=== PATIENT | female | born 1930 | race Two or more races ===

== ENCOUNTER 2017-05-28 13:13 | Inpatient (IN) | payer MEDICARE, MEDICAID ==
[~2017-05-28] VITALS: Ht 165.1 cm; Wt 70.8 kg
[2017-05-28] MEDS ORDERED: LIORESAL20 MG ORAL (13:54)
[2017-05-28 14:00] VITALS: BP 142/65
[2017-05-28 14:12] LABS: HEMATOCRIT 33.4 % (37.0-47.0); HEMOGLOBIN 12.1 G/DL (12.0-16.0); MEAN CORPUSCULAR VOLUME 93 FL (80-99); PLATELET COUNT 154 K/UL (150-450); RED CELL DISTRIBUTION WIDTH 10.7 % (11.6-14.8); WHITE BLOOD COUNT 10.8 K/UL (4.8-10.8)
[2017-05-28 14:30] LABS: ANION GAP 7 mmol/L (5-15); BLOOD UREA NITROGEN 26 mg/dL (7-18); CARBON DIOXIDE 30 MMOL/L (21-32); CHLORIDE 101 MMOL/L (98-107); CREATININE 0.9 MG/DL (0.55-1.30); POTASSIUM 3.4 MMOL/L (3.5-5.1); SODIUM 138 MMOL/L (136-145)
[2017-05-28 14:45] LABS: ALANINE AMINOTRANSFERASE 28 U/L (12-78); ALBUMIN 3.6 G/DL (3.4-5.0); ALBUMIN/GLOBULIN RATIO 1.1 (1.0-2.7); ALKALINE PHOSPHATASE 54 U/L (46-116); ASPARTATE AMINO TRANSFERASE 20 U/L (15-37); BILIRUBIN,TOTAL 0.5 MG/DL (0.2-1.0); CKMB < 0.5 NG/ML (0.0-3.6); CREATINE KINASE 30 U/L (26-308)
[2017-05-28 15:00] VITALS: BP 143/50
--- NOTE | 2017-05-28 15:49 | Diagnostic Imaging Report ---
Indication: Cough Technique: One view of the chest Comparison: none Findings: At least 2 subcentimeter nodular opacities are seen in the right lung base. Lungs and pleural spaces are otherwise clear. Heart size is normal Impression: Right basilar subcentimeter nodular opacities, likely postinflammatory but neoplasm not completely excludable. Consider further evaluation with CT scan if clinically indicated No acute process otherwise
[2017-05-28 16:00] VITALS: BP 135/63
--- NOTE | 2017-05-28 16:41 | Emergency Room Report ---
History of Present Illness General Chief Complaint: Chest Pain Source: Patient Present Illness HPI Patient presents to the emergency department today complaining of one day of worsening chest discomfort. It is described as dull achy Associates, shortness of breath. Radiates into her left shoulder. She denies any leg pain or leg swelling. Symptoms noted to be moderate to severe. Patient does not recall recent cardiac study.No other modifying factors. No other associated signs and symptoms. No other complaints were noted. Allergies: Coded Allergies: IBUPROFEN (Verified Allergy, Unknown, 05/28/17) Patient History Past Medical History: HTN Past Surgical History: none Pertinent Family History: none Social History: Denies: smoking, alcohol use, drug use Last Menstrual Period: na Reviewed Nursing Documentation: PMH: Agreed; PSxH: Agreed Nursing Documentation-PMH Past Medical History: No History, Except For Hx Hypertension: Yes Review of Systems All Other Systems: negative except mentioned in HPI Physical Exam Vital Signs Date Time Temp Pulse Resp B/P (MAP) Pulse Ox O2 Delivery O2 Flow Rate FiO2 05/28/17 13:22 98.5 75 18 111/56 98 Room Air 98.4 Sp02 EP Interpretation: reviewed, normal General Appearance: normal inspection, well appearing, no apparent distress, alert Head: atraumatic Eyes: bilateral eye normal inspection ENT: normal ENT inspection, hearing grossly normal, normal voice Neck: normal inspection, full range of motion, supple, no bony tend Respiratory: normal inspection, lungs clear, normal breath sounds, no respiratory distress, no retraction, no wheezing Cardiovascular #1: regular rate, rhythm, no edema Gastrointestinal: normal inspection, normal bowel sounds, non tender, soft, no guarding, no hernia Genitourinary: no CVA tenderness Musculoskeletal: normal inspection, back normal, normal range of motion Neurologic: normal inspection, alert, responsive, speech normal Psychiatric: normal inspection, judgement/insight normal, mood/affect normal Skin: normal inspection, normal color, no rash Medical Decision Making Diagnostic Impression: Primary Impression: Chest pain Additional Impression: ACS (acute coronary syndrome) ER Course Patient presented to the emergency department today complaining of chest pain. Differential diagnoses include acute coronary syndrome, pulmonary embolism, pneumothorax, chest wall pain, pleurisy, pericarditis, acute anxiety reaction just to name a few. Given the severity of the patient's presentation I felt this is a highly complex patient. This patient required extensive workup. CBC , chemistry, EKG, chest x-ray, cardiac enzymes, liver profile were all obtained. 12-lead EKG performed for nontraumatic chest pain. RS documentation: EKG was performed. Please refer to below for interpretation. Patient's laboratory workup was negative. Given patient's symptoms and her risk factors felt the patient required admission. Case discussed with Dr. Jens Sanchez for admission. Patient will be admitted to telemetry for further treatment. Labs Test 05/28/17 13:46 White Blood Count 10.8 K/UL (4.8-10.8) Red Blood Count 3.60 M/UL (4.20-5.40) Hemoglobin 12.1 G/DL (12.0-16.0) Hematocrit 33.4 % (37.0-47.0) Mean Corpuscular Volume 93 FL (80-99) Mean Corpuscular Hemoglobin 33.5 PG (27.0-31.0) Mean Corpuscular Hemoglobin Concent 36.1 G/DL (32.0-36.0) Red Cell Distribution Width 10.7 % (11.6-14.8) Platelet Count 154 K/UL (150-450) Mean Platelet Volume 8.4 FL (6.5-10.1) Neutrophils (%) (Auto) % (45.0-75.0) Lymphocytes (%) (Auto) % (20.0-45.0) Monocytes (%) (Auto) % (1.0-10.0) Eosinophils (%) (Auto) % (0.0-3.0) Basophils (%) (Auto) % (0.0-2.0) Differential Total Cells Counted 100 Neutrophils % (Manual) 25 % (45-75) Lymphocytes % (Manual) 70 % (20-45) Monocytes % (Manual) 4 % (1-10) Eosinophils % (Manual) 1 % (0-3) Basophils % (Manual) 0 % (0-2) Band Neutrophils 0 % (0-8) Reactive Lymphocytes 1+ Platelet Estimate Adequate Platelet Morphology Normal Red Blood Cell Morphology Normal Sodium Level 138 MMOL/L (136-145) Potassium Level 3.4 MMOL/L (3.5-5.1) Chloride Level 101 MMOL/L (98-107) Carbon Dioxide Level 30 MMOL/L (21-32) Anion Gap 7 mmol/L (5-15) Blood Urea Nitrogen 26 mg/dL (7-18) Creatinine 0.9 MG/DL (0.55-1.30) Estimat Glomerular Filtration Rate mL/min (>60) Glucose Level 109 MG/DL (74-106) Calcium Level 9.0 MG/DL (8.5-10.1) Total Bilirubin 0.5 MG/DL (0.2-1.0) Aspartate Amino Transf (AST/SGOT) 20 U/L (15-37) Alanine Aminotransferase (ALT/SGPT) 28 U/L (12-78) Alkaline Phosphatase 54 U/L (46-116) Total Creatine Kinase 30 U/L (26-308) Creatine Kinase MB < 0.5 NG/ML (0.0-3.6) Creatine Kinase MB Relative Index 1.6 Troponin I 0.000 ng/mL (0.000-0.056) Pro-B-Type Natriuretic Peptide 362 pg/mL (0-125) Total Protein 6.9 G/DL (6.4-8.2) Albumin 3.6 G/DL (3.4-5.0) Globulin 3.3 g/dL Albumin/Globulin Ratio 1.1 (1.0-2.7) Lipase 321 U/L (73-393) EKG Diagnostic Results Rate: normal Rhythm: NSR ST Segments: no acute changes Rhythm Strip Diag. Results EP Interpretation: yes Rate: 65 Rhythm: NSR, no PVC's, no ectopy Chest X-Ray Diagnostic Results Chest X-Ray Diagnostic Results : Chest X-Ray Ordered: Yes # of Views/Limited/Complete: 1 View Indication: Chest Pain EP Interpretation: No Interpretation: other - possible pulmonary nodules Last Vital Signs Date Time Temp Pulse Resp B/P (MAP) Pulse Ox O2 Delivery O2 Flow Rate FiO2 05/28/17 16:00 61 18 135/63 100 Room Air 05/28/17 13:22 98.5 98.4 Status: improved Disposition: ADMITTED INPATIENT Condition: Serious Referrals: NON PHYSICIAN (PCP) KALYN FIERRO M.D. May 28, 2017 16:41
[2017-05-28 17:00] VITALS: BP 139/68
[2017-05-28] MEDS ORDERED: dilTIAZem HCl 25mg/5ml Inj IV PRN (17:15)
[2017-05-28] MEDS ORDERED: Nitroglycerin Subl 0.4mg tab SL PRN (17:15)
[2017-05-28] MEDS ORDERED: Miralax 17gm pkt ORAL PRN (17:15)
[2017-05-28] MEDS ORDERED: Albuterol/Ipratropium 3ml neb HHN PRN (17:15)
[2017-05-28] MEDS ORDERED: Enalaprilat 2.5mg/2ml Inj IV PRN (17:15)
[2017-05-28 20:00] VITALS: BP 139/67
[2017-05-28] MEDS: Morphine Sulfate 2mg/ml Inj IVP PRN (20:07)
--- NOTE | 2017-05-28 20:35 | Cardiology Progress Note ---
Assessment/Plan Assessment/Plan ekg unremarkable tropnoted cxr neg awiatr echo and trop tomorrow full note to follow Objective Last 24 Hour Vital Signs Date Time Temp Pulse Resp B/P (MAP) Pulse Ox O2 Delivery O2 Flow Rate FiO2 05/28/17 19:59 65 18 Room Air 05/28/17 17:50 98.5 62 12 139/68 100 Nasal Cannula 2.0 98.4 05/28/17 17:00 62 12 139/68 100 Nasal Cannula 2.0 05/28/17 16:00 61 18 135/63 100 Room Air 05/28/17 15:00 67 16 143/50 98 Room Air 05/28/17 14:00 62 16 142/65 98 Room Air 05/28/17 13:30 Room Air 05/28/17 13:22 98.5 75 18 111/56 98 Room Air 98.4 Laboratory Tests Test 05/28/17 13:46 05/28/17 20:00 White Blood Count 10.8 K/UL (4.8-10.8) Red Blood Count 3.60 M/UL (4.20-5.40) L Hemoglobin 12.1 G/DL (12.0-16.0) Hematocrit 33.4 % (37.0-47.0) L Mean Corpuscular Volume 93 FL (80-99) Mean Corpuscular Hemoglobin 33.5 PG (27.0-31.0) H Mean Corpuscular Hemoglobin Concent 36.1 G/DL (32.0-36.0) H Red Cell Distribution Width 10.7 % (11.6-14.8) L Platelet Count 154 K/UL (150-450) Mean Platelet Volume 8.4 FL (6.5-10.1) Neutrophils (%) (Auto) % (45.0-75.0) Lymphocytes (%) (Auto) % (20.0-45.0) Monocytes (%) (Auto) % (1.0-10.0) Eosinophils (%) (Auto) % (0.0-3.0) Basophils (%) (Auto) % (0.0-2.0) Differential Total Cells Counted 100 Neutrophils % (Manual) 25 % (45-75) L Lymphocytes % (Manual) 70 % (20-45) H Monocytes % (Manual) 4 % (1-10) Eosinophils % (Manual) 1 % (0-3) Basophils % (Manual) 0 % (0-2) Band Neutrophils 0 % (0-8) Reactive Lymphocytes 1+ Platelet Estimate Adequate Platelet Morphology Normal Red Blood Cell Morphology Normal Sodium Level 138 MMOL/L (136-145) Potassium Level 3.4 MMOL/L (3.5-5.1) L Chloride Level 101 MMOL/L (98-107) Carbon Dioxide Level 30 MMOL/L (21-32) Anion Gap 7 mmol/L (5-15) Blood Urea Nitrogen 26 mg/dL (7-18) H Creatinine 0.9 MG/DL (0.55-1.30) Estimat Glomerular Filtration Rate mL/min (>60) Glucose Level 109 MG/DL (74-106) H Calcium Level 9.0 MG/DL (8.5-10.1) Total Bilirubin 0.5 MG/DL (0.2-1.0) Aspartate Amino Transf (AST/SGOT) 20 U/L (15-37) Alanine Aminotransferase (ALT/SGPT) 28 U/L (12-78) Alkaline Phosphatase 54 U/L (46-116) Total Creatine Kinase 30 U/L (26-308) Creatine Kinase MB < 0.5 NG/ML (0.0-3.6) Creatine Kinase MB Relative Index 1.6 Troponin I 0.000 ng/mL (0.000-0.056) Pending Pro-B-Type Natriuretic Peptide 362 pg/mL (0-125) H Total Protein 6.9 G/DL (6.4-8.2) Albumin 3.6 G/DL (3.4-5.0) Globulin 3.3 g/dL Albumin/Globulin Ratio 1.1 (1.0-2.7) Lipase 321 U/L (73-393) EZEQUIEL MARKS May 28, 2017 20:35
[2017-05-28] MEDS: Heparin 5000 units/ml inj SUBQ SCH (20:42)
[2017-05-29] VITALS: BP 129/65
[2017-05-29 04:00] VITALS: BP 130/67
[2017-05-29] MEDS: Morphine Sulfate 2mg/ml Inj IVP PRN (06:56)
[2017-05-29] MEDS ORDERED: Morphine Sulfate 4mg/ml Inj IVP PRN (07:00)
[2017-05-29 08:00] VITALS: BP 124/64
[2017-05-29] MEDS: Heparin 5000 units/ml inj SUBQ SCH ×2 (08:45→21:16)
[2017-05-29 08:52] LABS: HEMATOCRIT 36.7 % (37.0-47.0); HEMOGLOBIN 12.4 G/DL (12.0-16.0); MEAN CORPUSCULAR VOLUME 94 FL (80-99); PLATELET COUNT 158 K/UL (150-450); RED BLOOD COUNT 3.91 M/UL (4.20-5.40); RED CELL DISTRIBUTION WIDTH 11.1 % (11.6-14.8); WHITE BLOOD COUNT 11.2 K/UL (4.8-10.8)
[2017-05-29 09:24] LABS: CHOLESTEROL 225 MG/DL (< 200); HDL CHOLESTEROL 55 MG/DL (40-60); TRIGLYCERIDES 94 MG/DL (30-150)
[2017-05-29 12:00] VITALS: BP 131/68
--- NOTE | 2017-05-29 12:01 | Consultation ---
History of Present Illness General Date patient seen: May 29, 2017 Chief Complaint: Chest Pain Referring physician: Dr. Parada Reason for Consultation: pulmonary nodule Present Illness HPI 86 year of female with hx of HTN presented to the emergency department complaining of chest discomfort. It is described as dull achy, shortness of breath. Radiates into her left shoulder. She denies any leg pain or leg swelling. Symptoms noted to be moderate to severe. she is admitted to telemetry to rule out ACS. Her cxr showed subcentimeter nodules in sub hilar area. Allergies: Coded Allergies: IBUPROFEN (Verified Allergy, Unknown, 05/28/17) Medication History Scheduled Baclofen (Baclofen), 20 MG ORAL THREE TIMES A DAY, (Reported) Patient History Healthcare decision maker N Resuscitation status Advanced Directive on File Past Medical/Surgical History Past Medical/Surgical History: (1) History of hypertension Review of Systems Eye: Reports: no symptoms ENT: Reports: no symptoms Cardiovascular: Reports: chest pain All Other Systems: negative except mentioned in HPI Physical Exam General Appearance: WD/WN Lines, tubes and drains: peripheral HEENT: normocephalic, atraumatic Neck: non-tender, normal alignment Respiratory/Chest: chest wall non-tender, lungs clear Breasts: no masses Cardiovascular/Chest: normal peripheral pulses Abdomen: normal bowel sounds, soft Genitourinary/Rectal: normal genital exam Extremities: normal range of motion Skin Exam: normal pigmentation Last 24 Hour Vital Signs Date Time Temp Pulse Resp B/P (MAP) Pulse Ox O2 Delivery O2 Flow Rate FiO2 05/29/17 08:00 68 05/29/17 08:00 97.0 66 19 124/64 100 Nasal Cannula 2.0 97.0 66 05/29/17 04:00 96.1 66 16 130/67 99 Nasal Cannula 2.0 96.1 05/29/17 04:00 61 05/29/17 00:00 57 05/29/17 00:00 96.4 71 19 129/65 100 Nasal Cannula 2.0 96.4 05/28/17 20:00 97.3 79 18 139/67 98 Nasal Cannula 2.0 97.3 05/28/17 20:00 70 05/28/17 19:59 65 18 Room Air 05/28/17 17:50 98.5 62 12 139/68 100 Nasal Cannula 2.0 98.4 05/28/17 17:00 62 12 139/68 100 Nasal Cannula 2.0 05/28/17 16:00 61 18 135/63 100 Room Air 05/28/17 15:00 67 16 143/50 98 Room Air 05/28/17 14:00 62 16 142/65 98 Room Air 05/28/17 13:30 Room Air 05/28/17 13:22 98.5 75 18 111/56 98 Room Air 98.4 Intake and Output 05/28/17 05/29/17 19:00 07:00 Intake Total 420 ml Output Total 100 ml 300 ml Balance -100 ml 120 ml Intake Oral 420 ml Output Urine Total 100 ml 300 ml # Voids 1 Laboratory Tests Test 05/28/17 13:46 05/28/17 20:00 05/29/17 08:15 White Blood Count 10.8 K/UL (4.8-10.8) 11.2 K/UL (4.8-10.8) H Red Blood Count 3.60 M/UL (4.20-5.40) L 3.91 M/UL (4.20-5.40) L Hemoglobin 12.1 G/DL (12.0-16.0) 12.4 G/DL (12.0-16.0) Hematocrit 33.4 % (37.0-47.0) L 36.7 % (37.0-47.0) L Mean Corpuscular Volume 93 FL (80-99) 94 FL (80-99) Mean Corpuscular Hemoglobin 33.5 PG (27.0-31.0) H 31.9 PG (27.0-31.0) H Mean Corpuscular Hemoglobin Concent 36.1 G/DL (32.0-36.0) H 33.9 G/DL (32.0-36.0) Red Cell Distribution Width 10.7 % (11.6-14.8) L 11.1 % (11.6-14.8) L Platelet Count 154 K/UL (150-450) 158 K/UL (150-450) Mean Platelet Volume 8.4 FL (6.5-10.1) 8.0 FL (6.5-10.1) Neutrophils (%) (Auto) % (45.0-75.0) % (45.0-75.0) Lymphocytes (%) (Auto) % (20.0-45.0) % (20.0-45.0) Monocytes (%) (Auto) % (1.0-10.0) % (1.0-10.0) Eosinophils (%) (Auto) % (0.0-3.0) % (0.0-3.0) Basophils (%) (Auto) % (0.0-2.0) % (0.0-2.0) Differential Total Cells Counted 100 100 Neutrophils % (Manual) 25 % (45-75) L 23 % (45-75) L Lymphocytes % (Manual) 70 % (20-45) H 71 % (20-45) H Monocytes % (Manual) 4 % (1-10) 5 % (1-10) Eosinophils % (Manual) 1 % (0-3) 1 % (0-3) Basophils % (Manual) 0 % (0-2) 0 % (0-2) Band Neutrophils 0 % (0-8) 0 % (0-8) Reactive Lymphocytes 1+ 1+ Platelet Estimate Adequate Adequate Platelet Morphology Normal Normal Red Blood Cell Morphology Normal Normal Sodium Level 138 MMOL/L (136-145) Potassium Level 3.4 MMOL/L (3.5-5.1) L Chloride Level 101 MMOL/L (98-107) Carbon Dioxide Level 30 MMOL/L (21-32) Anion Gap 7 mmol/L (5-15) Blood Urea Nitrogen 26 mg/dL (7-18) H Creatinine 0.9 MG/DL (0.55-1.30) Estimat Glomerular Filtration Rate mL/min (>60) Glucose Level 109 MG/DL (74-106) H Calcium Level 9.0 MG/DL (8.5-10.1) Total Bilirubin 0.5 MG/DL (0.2-1.0) Aspartate Amino Transf (AST/SGOT) 20 U/L (15-37) Alanine Aminotransferase (ALT/SGPT) 28 U/L (12-78) Alkaline Phosphatase 54 U/L (46-116) Total Creatine Kinase 30 U/L (26-308) Creatine Kinase MB < 0.5 NG/ML (0.0-3.6) Creatine Kinase MB Relative Index 1.6 Troponin I 0.000 ng/mL (0.000-0.056) 0.000 ng/mL (0.000-0.056) 0.000 ng/mL (0.000-0.056) Pro-B-Type Natriuretic Peptide 362 pg/mL (0-125) H Total Protein 6.9 G/DL (6.4-8.2) Albumin 3.6 G/DL (3.4-5.0) Globulin 3.3 g/dL Albumin/Globulin Ratio 1.1 (1.0-2.7) Lipase 321 U/L (73-393) Prothrombin Time 10.4 SEC (9.30-11.50) Prothromb Time International Ratio 1.0 (0.9-1.1) Activated Partial Thromboplast Time 23 SEC (23-33) C-Reactive Protein, Quantitative < 0.4 mg/dL (0.00-0.90) Triglycerides Level 94 MG/DL (30-150) Cholesterol Level 225 MG/DL (< 200) H LDL Cholesterol 147 mg/dL (<100) H HDL Cholesterol 55 MG/DL (40-60) Cholesterol/HDL Ratio 4.1 (3.3-4.4) Thyroid Stimulating Hormone (TSH) 0.595 uiU/mL (0.358-3.740) Height (Feet): 5 Height (Inches): 5.00 Weight (Pounds): 156 Medications Current Medications Medications (Trade) Dose Ordered Sig/Ayesha Route PRN Reason Start Time Stop Time Status Last Admin Dose Admin Acetaminophen (Tylenol) 650 mg Q4H PRN ORAL FEVER (temp>100.5F) 05/28/17 17:15 06/27/17 17:14 Albuterol/ Ipratropium (Albuterol/ Ipratropium) 3 ml Q4H PRN HHN Shortness of Breath 05/28/17 17:15 06/02/17 17:14 Diltiazem HCl (Cardizem) 10 mg Q1H PRN IV heart rate more than 120, 05/28/17 17:15 06/27/17 17:14 Enalaprilat (Vasotec) 2.5 mg Q6H PRN IV sbp more than 160 05/28/17 17:15 06/27/17 17:14 Heparin Sodium (Porcine) (Heparin 5000 units/ml) 5,000 units EVERY 12 HOURS SUBQ 05/28/17 21:00 06/27/17 20:59 05/29/17 08:45 Morphine Sulfate (Morphine Sulfate) 2 mg Q4H PRN IVP Severe Pain (Pain Scale 7-10) 05/29/17 07:00 06/04/17 17:14 Nitroglycerin (Ntg) 0.4 mg Q5M PRN SL Prn Chest Pain 05/28/17 17:15 06/27/17 17:14 Ondansetron HCl (Zofran) 4 mg Q6H PRN IVP Nausea & Vomiting 05/28/17 17:15 06/27/17 17:14 Polyethylene Glycol (Miralax) 17 gm DAILYPRN PRN ORAL Constipation 05/28/17 17:15 06/27/17 17:14 Temazepam (Restoril) 15 mg HSPRN PRN ORAL Insomnia 05/28/17 17:15 06/04/17 17:14 Assessment/Plan Problem List: (1) ACS (acute coronary syndrome) ICD Codes: I24.9 - Acute ischemic heart disease, unspecified SNOMED: 310662989 (2) Pulmonary nodule ICD Codes: R91.1 - Solitary pulmonary nodule SNOMED: 022894099 (3) Chest pain ICD Codes: R07.9 - Chest pain, unspecified SNOMED: 79496467 (4) History of hypertension ICD Codes: Z86.79 - Personal history of other diseases of the circulatory system SNOMED: 032503271 Assessment/Plan serial ekg, tronopnin Echo symptomatic treatment CT of chest with contrast if pt agrees. Eunice Caro MD May 29, 2017 12:01
[2017-05-29] MEDS ORDERED: LORazepam 1mg tab ORAL PRN (13:00)
[2017-05-29] MEDS ORDERED: Meclizine 25mg tab ORAL PRN (14:30)
[2017-05-29 16:00] VITALS: BP_SYST 149; BP_SYST 153; BP_DIAS 65; BP_DIAS 73
--- NOTE | 2017-05-29 16:56 | History & Physical ---
History and Physical History & Physicial Dictated for Int Med -Dr Sanchez no. [id number]. KAILYN CHANDLER May 29, 2017 16:56
[2017-05-29] MEDS: Timolol 0.5% Op Soln 2.5ml BOTH EYES SCH (19:54)
[2017-05-29 20:00] VITALS: BP 174/72
--- NOTE | 2017-05-29 20:00 | Cardiology Progress Note ---
Assessment/Plan Assessment/Plan cp reproducible on palpation of he deltopectoral groove cll multiple pulm nodule on ct a t [place] unchanged since 2012 ct per [facility]ed[facility] report obesity djd htn all torp neg ekg neg unchanged form prior pain on palpation echo no swma ok to dc home with out pt fu [id number] Objective Last 24 Hour Vital Signs Date Time Temp Pulse Resp B/P (MAP) Pulse Ox O2 Delivery O2 Flow Rate FiO2 05/29/17 16:00 97.3 76 19 149/73 97 Nasal Cannula 2.0 97.3 76 05/29/17 15:47 76 05/29/17 14:25 64 20 Nasal Cannula 2.0 05/29/17 14:23 Nasal Cannula 2.0 05/29/17 14:22 97 Nasal Cannula 2.0 05/29/17 12:00 97.7 73 20 131/68 100 Nasal Cannula 2.0 97.7 73 05/29/17 12:00 60 05/29/17 08:00 68 05/29/17 08:00 97.0 66 19 124/64 100 Nasal Cannula 2.0 97.0 66 05/29/17 04:00 96.1 66 16 130/67 99 Nasal Cannula 2.0 96.1 05/29/17 04:00 61 05/29/17 00:00 57 05/29/17 00:00 96.4 71 19 129/65 100 Nasal Cannula 2.0 96.4 05/28/17 20:00 97.3 79 18 139/67 98 Nasal Cannula 2.0 97.3 05/28/17 20:00 70 05/28/17 19:59 65 18 Room Air Intake and Output 05/28/17 05/29/17 19:00 07:00 Intake Total 420 ml Output Total 100 ml 300 ml Balance -100 ml 120 ml Intake Oral 420 ml Output Urine Total 100 ml 300 ml # Voids 1 Laboratory Tests Test 05/28/17 20:00 05/29/17 08:15 Troponin I 0.000 ng/mL (0.000-0.056) 0.000 ng/mL (0.000-0.056) White Blood Count 11.2 K/UL (4.8-10.8) H Red Blood Count 3.91 M/UL (4.20-5.40) L Hemoglobin 12.4 G/DL (12.0-16.0) Hematocrit 36.7 % (37.0-47.0) L Mean Corpuscular Volume 94 FL (80-99) Mean Corpuscular Hemoglobin 31.9 PG (27.0-31.0) H Mean Corpuscular Hemoglobin Concent 33.9 G/DL (32.0-36.0) Red Cell Distribution Width 11.1 % (11.6-14.8) L Platelet Count 158 K/UL (150-450) Mean Platelet Volume 8.0 FL (6.5-10.1) Neutrophils (%) (Auto) % (45.0-75.0) Lymphocytes (%) (Auto) % (20.0-45.0) Monocytes (%) (Auto) % (1.0-10.0) Eosinophils (%) (Auto) % (0.0-3.0) Basophils (%) (Auto) % (0.0-2.0) Differential Total Cells Counted 100 Neutrophils % (Manual) 23 % (45-75) L Lymphocytes % (Manual) 71 % (20-45) H Monocytes % (Manual) 5 % (1-10) Eosinophils % (Manual) 1 % (0-3) Basophils % (Manual) 0 % (0-2) Band Neutrophils 0 % (0-8) Reactive Lymphocytes 1+ Platelet Estimate Adequate Platelet Morphology Normal Red Blood Cell Morphology Normal Prothrombin Time 10.4 SEC (9.30-11.50) Prothromb Time International Ratio 1.0 (0.9-1.1) Activated Partial Thromboplast Time 23 SEC (23-33) C-Reactive Protein, Quantitative < 0.4 mg/dL (0.00-0.90) Triglycerides Level 94 MG/DL (30-150) Cholesterol Level 225 MG/DL (< 200) H LDL Cholesterol 147 mg/dL (<100) H HDL Cholesterol 55 MG/DL (40-60) Cholesterol/HDL Ratio 4.1 (3.3-4.4) Thyroid Stimulating Hormone (TSH) 0.595 uiU/mL (0.358-3.740) EZEQUIEL MARKS May 29, 2017 20:00
--- NOTE | 2017-05-29 21:13 | Cardiology Report ---
APPROVED REPORT EKG Measurement Heart [id number] Normal sinus rhythm with sinus arrhythmia Normal ECG
[2017-05-29] MEDS: Brimonidine 0.2% Opth Sol BOTH EYES SCH (21:14)
--- NOTE | 2017-05-29 21:30 | Consultation ---
DATE OF CONSULTATION: 05/29/2017 CONSULTING PHYSICIAN: Nicole Abreu M.D. HISTORY: The patient is an 86-year-old female with a history of multiple medical problems including hypertension, chest pain, pulmonary nodules, acute coronary syndrome, and anxiety, who has been admitted to the hospital for chest pain. Psychiatry was consulted as the patient presenting with anxiety. During the evaluation, her daughter and son-in-law also were present. The patient having anxiety every day, most of the day. She denied any depressive symptoms, which include suicidal or homicidal ideation. No manic or psychotic symptoms. She has cognitive impairment including memory. PAST PSYCHIATRIC HISTORY: As above. ALLERGIES: Ibuprofen. SUBSTANCE ABUSE HISTORY: No history of illicit drug use or alcohol. MENTAL STATUS EXAMINATION: The patient is alert and oriented times self, place, and situation. Mood is anxious. Affect is constricted. Congruent with mood. Thought process is concrete. Thought content, no suicidal or homicidal ideations. No delusions. Cognition is impaired, mild to moderate. Insight and judgment is fair. ASSESSMENT: AXIS I Anxiety disorder. AXIS II Deferred. AXIS III As above. AXIS IV Low. PLAN: 1. We will start the patient on Ativan p.r.n. 2. The son-in-law stated that he would like morphine to be stopped. I redirected her to speak to the charge nurse. Nicole Abreu M.D. DR: NAKIA JOB#: [id number] CC:
--- NOTE | 2017-05-29 22:15 | History and Physical Report ---
DATE OF ADMISSION: 05/28/2017 CHIEF COMPLAINT: The patient is an 86-year-old white female who presents with chief complaint of dizziness and chest pain. HISTORY OF PRESENT ILLNESS: Began one month ago. The patient was admitted to [facility]. The patient states she had "test done there." The patient states history of present illness began 3 days prior to admission. The patient began to experience dizziness. The patient states dizziness gets worse with change of head position. The patient states on 05/28/2017, she began to experience left-sided chest pain. Chest pain radiates to the left axilla. The patient states there are no alleviating factors. The patient presented to [place] emergency room. The patient was admitted for chest pain to rule out acute coronary syndrome. PAST MEDICAL HISTORY: Significant for; 1. Hypertension. 2. History of cerebrovascular accident in 1989. PAST SURGICAL HISTORY: Significant for 1. Bilateral knee replacement. 2. Bilateral carpal tunnel release. 3. Cholecystectomy. CURRENT MEDICATIONS: Baclofen 20 mg p.o. 3 times daily. ALLERGIES: To Celebrex and tramadol. SOCIAL HISTORY: The patient is a and lives alone. The patient denies tobacco or alcohol use. REVIEW OF SYSTEMS: CONSTITUTIONAL: The patient denies weight loss or weight gain. The patient denies fevers or chills. HEENT: The patient denies ear or throat pain. The patient denies headache. CARDIOVASCULAR: The patient complains of chest pain as above. The patient denies palpitations. CHEST: The patient denies wheeze or shortness of breath. ABDOMEN: The patient denies nausea, vomiting, diarrhea, or constipation. GENITOURINARY: The patient denies dysuria or increased frequency urination. NEUROMUSCULAR: The patient complains of vertigo as above. The patient denies seizures or generalized weakness. PHYSICAL EXAMINATION: GENERAL: The patient is well-developed and well-nourished white female, in no apparent distress. VITAL SIGNS: Temperature 96.4 degrees, respirations 19, pulse 71, and blood pressure 129/65. HEENT: Pupils equal and responsive to light and accommodation. Extraocular movements are intact. NECK: Supple without lymphadenopathy. CHEST: Lungs are clear to auscultation bilaterally without wheezes or rales. CARDIOVASCULAR: Regular 02:41 rate. S1 and S2 normal without murmurs, rubs, or gallops. ABDOMEN: Soft, nontender, and nondistended. Positive bowel sounds. No evidence of hepatosplenomegaly. Currently, no rebound or guarding noted. EXTREMITIES: Negative for clubbing, cyanosis, or edema. RECTAL/GENITAL: Deferred. NEUROLOGIC: Cranial nerves II through XII are grossly intact without focal deficits. Motor strength is 5/5 bilaterally. Deep tendon reflexes are 2+ plantar. LABORATORY AND DIAGNOSTIC DATA: WBC 10.8, hemoglobin 12.1, hematocrit 33.4 and platelets 154,000. Sodium 138, potassium 3.4, chloride 101, CO2 30, BUN 26, creatinine 0.9 and glucose 109. Troponin 0.0. BNP elevated at 362. A chest x-ray was reported as no acute disease. An EKG demonstrated normal sinus rhythm at approximately 65 beats per minute. There are no acute ST changes or Q-waves noted. ASSESSMENT: This is an 86-year-old white female 1. Vertigo. 2. Chest pain. 3. Hypertension. 4. History of cerebrovascular disease. TREATMENT: 1. Chest pain. A Cardiology consultation will be obtained with Dr. Ifeanyi Obrien. A Cardiolite stress test is pending. A CT scan of the chest is pending. We will follow recommendation of Cardiology. 2. Vertigo. The patient is currently being offered meclizine p.r.n. for vertigo. 3. Hypertension. The patient is currently normotensive, off medication. 4. Cerebrovascular disease. Tobi Parada M.D. DR: JORDAN JOB#: [id number] CC:
[2017-05-30] VITALS: BP 105/66
--- NOTE | 2017-05-30 01:00 | Consultation ---
DATE OF CONSULTATION: 05/29/2017 CARDIOLOGY CONSULTATION CONSULTING PHYSICIAN: Ifeanyi Obrien M.D. REFERRING PHYSICIAN: Eunice Caro M.D. REASON FOR REFERRAL: Chest pain. HISTORY OF PRESENT ILLNESS: This is an 86-year-old female, the patient's information was obtained from review of the [facility] records as well as from my discussion with her. The patient recently was hospitalized and discharged at [facility] where she presented previously approximately two to three weeks ago with complaints of chest pain. Myocardial infarction was excluded. The patient underwent a CT pulmonary angiography pulmonary embolism and dissection and the patient was discharged. Her chest pain apparently was reproducible on palpation of the chest wall. Nevertheless, she was discharged. She apparently saw her quality rep, not sure if there was anything done. She herself does not remember having chest pain that information obtained from the [facility] records. Nevertheless, she thinks that she had presented to the emergency room for elevated blood pressure. In addition she came because of elevated blood pressure. She came in because of chest pains too apparently as I understand it. The pain has been present since yesterday morning constantly in the left deltopectoral groove. It is tender to palpation. She has not identified any relieving or exacerbating factors, but the pain is not relieved since. She does not seem to think the pain gets worse with coughing or taking a deep breath or movement of her left arm. She has not really tried to get out of bed to see if the pain is reproducible or exacerbated by those factors. The patient does not have any PND and uses two pillows at home. There is no dizziness or lightheadedness on standing on usual basis. PAST MEDICAL HISTORY: Positive for history of hypertension for which she has previously been discharged from [facility] with Diovan HCT 160/12.5 mg every 12 hours, Norvasc 10 mg a day, Coreg 3.125 mg twice a day. She also has gastroesophageal reflux for which she is on Zantac. 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 She has insomnia. She has had degenerative joint disease, carpal tunnel release, hysterectomy and cholecystectomy. ALLERGIES: She is allergic to morphine and acetaminophen according to the chart. SOCIAL HISTORY: She does not drink, does not use drugs and no smoking. FAMILY HISTORY: Father with lung cancer. No known history of heart disease according to family. REVIEW OF SYSTEMS: GASTROINTESTINAL: She has had some nausea and she vomited 2 days ago, but she has been feeling nauseated today. There is no black or tarry stools. GENITOURINARY: Negative. PULMONARY: Negative. CONSTITUTIONAL: Negative. NEUROLOGICAL: Negative. PHYSICAL EXAMINATION: GENERAL: Shows to be morbidly obese elderly female, in no respiratory distress, lying down approximately 30 to 40 degrees head of bed elevation. VITAL SIGNS: Her blood pressure is anywhere between 124/64 to 149/73. NECK: Supple. No jugular venous distention. LUNGS: Clear to auscultation and percussion. CARDIAC: S1 is normal. S2 is normal. Regular rate and rhythm. No heaves, thrills, or gallops noted. Chest wall has tenderness in the deltopectoral groove area. ABDOMEN: Soft. Obese. Positive bowel sounds. Nontender. EXTREMITIES: There is no clubbing, cyanosis, nor is there any edema. NEUROLOGICAL: She is awake, alert, responsive, and in no respiratory distress whatsoever. LABORATORY AND DIAGNOSTIC DATA: Her labs, sodium 138, potassium 3.4, chloride 101, bicarbonate 31, BUN 6, creatinine 0.9 and glucose 109. Liver function tests are all normal. Three sets of cardiac enzymes all were negative. CRP less than 0.4. ProBNP of 362. Total cholesterol 225 and LDL of 147. TSH is 0.59. Lipase of 321, normal for this hospital. INR is 1.0 and PTT of 23. She has had a chest x-ray performed here with no acute processes except for right sided pulmonary nodule density postinflammatory noted. [facility] records have been reviewed. Chest x-ray showed normal sinus rhythm. No ST or T-wave abnormalities in direct comparison with the EKG performed at [facility] on 04/22/2017, does not appear to be significantly changed at all. Of note, she has had a CT scan at [facility] as mentioned just recently that showed no evidence of pulmonary embolism, numerous small bilateral pulmonary nodules, ground-glass opacities in the lungs unchanged since 2013 with possibility of a mucous plugging on the right, old granulomatous disease and biliary and pancreatic ductal dilatation seen on MR angiogram of 03/22/2017 and she has stable noncalcified borderline enlarged mediastinal and hilar lymph nodes. ASSESSMENT AND PLAN: 1. Chest pain, reproducible on palpation in the deltopectoral groove. No evidence of myonecrosis. 2. Hypertension, controlled. 3. History of numerous bilateral pulmonary nodules, unchanged since 05/2012. CT scans are to be post inflammatory benign. 4. Obesity. 5. CLL. Dr. Caro, this patient was seen in cardiac consultation. The patient has no evidence of myonecrosis. EKG is unremarkable. She has had an echocardiogram that showed normal left ventricular systolic function and no wall motion abnormalities. A chest x-ray is unremarkable. She has had extensive workup at [facility]. At some point, as outpatient she may qualify to have stress testing performed. She has her own quality rep apparently that follows on a regular basis and she may do that through that quality rep. I see no urgency in performing this stress test here as the patient's pain is reproducible on palpation in the deltopectoral groove with no evidence of myonecrosis. Ifeanyi Obrien M.D. DR: LORRIE JOB#: [id number] CC:
[2017-05-30 04:00] VITALS: BP 99/51
[2017-05-30] MEDS: Brimonidine 0.2% Opth Sol BOTH EYES SCH ×2 (05:59→14:28)
[2017-05-30 06:41] LABS: HEMOGLOBIN 11.5 G/DL (12.0-16.0); MEAN CORPUSCULAR VOLUME 94 FL (80-99); PLATELET COUNT 131 K/UL (150-450); RED BLOOD COUNT 3.52 M/UL (4.20-5.40); RED CELL DISTRIBUTION WIDTH 11.2 % (11.6-14.8); WHITE BLOOD COUNT 10.7 K/UL (4.8-10.8)
[2017-05-30 06:54] LABS: ANION GAP 8 mmol/L (5-15); BLOOD UREA NITROGEN 30 mg/dL (7-18); CALCIUM 8.9 MG/DL (8.5-10.1); CARBON DIOXIDE 30 MMOL/L (21-32); CHLORIDE 100 MMOL/L (98-107); CREATININE 1.3 MG/DL (0.55-1.30); POTASSIUM 4.1 MMOL/L (3.5-5.1); SODIUM 138 MMOL/L (136-145)
[2017-05-30 08:00] VITALS: BP 81/48
--- NOTE | 2017-05-30 08:19 | Cardiology Report ---
APPROVED REPORT EXAM: Two-dimensional and M-mode echocardiogram with Doppler and color Doppler. INDICATION LV FUNCTION M-Mode DIMENSIONS IVSd1.4 (0.7-1.1cm)Left Atrium (MM)3.6 (1.6-4.0cm) LVDd4.5 (3.5-5.6cm)Aortic Root3.0 (2.0-3.7cm) PWd1.3 (0.7-1.1cm)Aortic Cusp Exc.1.7 (1.5-2.0cm) IVSs2.6 cm LVDs3.0 (2.5-4.0cm) PWs1.4 cm Normal left ventricular chamber size, systolic function and wall motion . Left ventricular ejection fraction estimated to be 65-70 %. Mild left ventricular hypertrophy by 2-D. No evidence of pericardial effusion. All other cardiac chamber sizes are within normal limits. Focal aortic valve sclerosis with adequate cusp excursion. Mildly Thickened mitral valve leaflets with normal excursion. Mildly Mitral annulus and aortic root calcification. Pulmonic valve not well visualized. Normal tricuspid valve structure. IVC at normal size with physiological collapse . A color flow and spectral Doppler study was performed and revealed: Mild aortic regurgitation. Trace to mild mitral regurgitation. Mitral diastolic velocities suggest reduced left ventricular relaxation c/w mild LV diastolic dysfunction (Grade I ). Mild tricuspid regurgitation. Tricuspid systolic velocities suggests peak right ventricular systolic pressure of 36, consistent with mild hypertension.
[2017-05-30] MEDS: Timolol 0.5% Op Soln 2.5ml BOTH EYES SCH (08:27)
[2017-05-30] MEDS ORDERED: NS 250 ML IVPB ONE (08:30)
[2017-05-30] MEDS: Heparin 5000 units/ml inj SUBQ SCH (08:32)
[2017-05-30] MEDS ORDERED: hydroCHLOROthiazide 12.5mg TAB ORAL SCH (09:00)
[2017-05-30 09:23] VITALS: BP 97/40
[2017-05-30 11:51] VITALS: BP 107/49
[2017-05-30] MEDS ORDERED: MECLIZINE HCL25 MG ORAL (12:14)
--- NOTE | 2017-05-30 12:16 | Pulmonology Progress Note ---
Assessment/Plan Problems: (1) Costochondritis (2) ACS (acute coronary syndrome) (3) Pulmonary nodule (4) Chest pain (5) History of hypertension Assessment/Plan cardio note reviewed symptomatic treatment f/u by outpatient physician antiinflammatory Subjective ROS Limited/Unobtainable: No Interval Events: feeling better Constitutional: Reports: no symptoms HEENT: Repors: no symptoms Allergies: Coded Allergies: IBUPROFEN (Verified Allergy, Unknown, 05/28/17) Objective Last 24 Hour Vital Signs Date Time Temp Pulse Resp B/P (MAP) Pulse Ox O2 Delivery O2 Flow Rate FiO2 05/30/17 11:51 97.3 72 19 107/49 99 Room Air 97.3 05/30/17 09:23 97/40 05/30/17 08:00 97.6 78 19 81/48 96 Nasal Cannula 2.0 97.6 05/30/17 08:00 79 05/30/17 04:00 61 05/30/17 04:00 97.1 68 20 99/51 100 Nasal Cannula 2.0 97.1 05/30/17 00:00 97.3 68 21 105/66 100 Nasal Cannula 2.0 97.3 05/30/17 00:00 58 05/29/17 21:15 69 175/96 05/29/17 21:14 69 175/96 05/29/17 20:33 69 05/29/17 20:00 97.0 80 20 174/72 99 Nasal Cannula 2.0 97.0 05/29/17 19:59 97 Nasal Cannula 2.0 28 05/29/17 19:59 87 20 Nasal Cannula 2.0 28 05/29/17 19:59 Nasal Cannula 2.0 28 05/29/17 19:54 175/96 05/29/17 16:00 97.3 76 19 149/73 97 Nasal Cannula 2.0 97.3 76 05/29/17 15:47 76 05/29/17 14:25 64 20 Nasal Cannula 2.0 05/29/17 14:23 Nasal Cannula 2.0 05/29/17 14:22 97 Nasal Cannula 2.0 Intake and Output 05/29/17 05/30/17 19:00 07:00 Intake Total 320 ml Balance 320 ml Intake Oral 320 ml # Voids 2 1 # Bowel Movements 2 General Appearance: WD/WN HEENT: normocephalic, atraumatic Respiratory/Chest: chest wall non-tender, lungs clear Breasts: no masses Cardiovascular: normal peripheral pulses Abdomen: normal bowel sounds, soft, non tender, no scars Genitourinary: normal external genitalia Skin: no rash Neurologic/Psychiatric: mailing specialist II-XII grossly normal Lymphatic: no neck adenopathy Laboratory Tests 05/30/17 05:40: White Blood Count 10.7, Red Blood Count 3.52L, Hemoglobin 11.5L, Hematocrit 33.0L, Mean Corpuscular Volume 94, Mean Corpuscular Hemoglobin 32.8H, Mean Corpuscular Hemoglobin Concent 34.9, Red Cell Distribution Width 11.2L, Platelet Count 131L, Mean Platelet Volume 7.9, Neutrophils (%) (Auto) , Lymphocytes (%) (Auto) , Monocytes (%) (Auto) , Eosinophils (%) (Auto) , Basophils (%) (Auto) , Differential Total Cells Counted 100, Neutrophils % ( Manual) 31L, Lymphocytes % (Manual) 62H, Monocytes % (Manual) 5, Eosinophils % ( Manual) 2, Basophils % (Manual) 0, Band Neutrophils 0, Platelet Estimate DecreasedL, Platelet Morphology Normal, Anisocytosis 1+, Sodium Level 138, Potassium Level 4.1, Chloride Level 100, Carbon Dioxide Level 30, Anion Gap 8, Blood Urea Nitrogen 30H, Creatinine 1.3, Estimat Glomerular Filtration Rate , Glucose Level 96, Calcium Level 8.9, Troponin I 0.002 Current Medications Medications (Trade) Dose Ordered Sig/Ayesha Route PRN Reason Start Time Stop Time Status Last Admin Dose Admin Acetaminophen (Tylenol) 650 mg Q4H PRN ORAL FEVER (temp>100.5F) 05/28/17 17:15 06/27/17 17:14 Albuterol/ Ipratropium (Albuterol/ Ipratropium) 3 ml Q4H PRN HHN Shortness of Breath 05/28/17 17:15 06/02/17 17:14 Brimonidine Tartrate (Alphagan) 1 drop Q8HR BOTH EYES 05/29/17 22:00 06/28/17 21:59 05/30/17 05:59 Diltiazem HCl (Cardizem) 10 mg Q1H PRN IV heart rate more than 120, 05/28/17 17:15 06/27/17 17:14 Enalaprilat (Vasotec) 2.5 mg Q6H PRN IV sbp more than 160 05/28/17 17:15 06/27/17 17:14 05/29/17 19:54 Heparin Sodium (Porcine) (Heparin 5000 units/ml) 5,000 units EVERY 12 HOURS SUBQ 05/28/17 21:00 06/27/17 20:59 05/30/17 08:32 Lorazepam (Ativan) 1 mg Q6H PRN ORAL For Anxiety 05/29/17 13:00 06/05/17 12:59 Meclizine HCl (Antivert) 25 mg Q6H PRN ORAL for dizziness 05/29/17 14:30 06/28/17 14:29 05/29/17 14:32 Morphine Sulfate (Morphine Sulfate) 2 mg Q4H PRN IVP Severe Pain (Pain Scale 7-10) 05/29/17 07:00 06/04/17 17:14 Nitroglycerin (Ntg) 0.4 mg Q5M PRN SL Prn Chest Pain 05/28/17 17:15 06/27/17 17:14 Ondansetron HCl (Zofran) 4 mg Q6H PRN IVP Nausea & Vomiting 05/28/17 17:15 06/27/17 17:14 Patient Own Medication (Patient's Own Med) 1 ea BEDTIME BOTH EYES 05/29/17 21:00 06/28/17 20:59 UNV Polyethylene Glycol (Miralax) 17 gm DAILYPRN PRN ORAL Constipation 05/28/17 17:15 06/27/17 17:14 Sodium Chloride 1,000 ml @ 100 mls/hr Q10H IV 05/30/17 09:30 06/29/17 09:29 05/30/17 09:58 Temazepam (Restoril) 15 mg HSPRN PRN ORAL Insomnia 05/28/17 17:15 06/04/17 17:14 05/30/17 00:05 Timolol Maleate (Timoptic 0.5% Op Soln) 1 drop TWICE A DAY BOTH EYES 05/29/17 19:30 06/28/17 19:29 05/30/17 08:27 Eunice Caro MD May 30, 2017 12:16
--- NOTE | 2017-05-30 12:18 | Physician Query ---
--------- THIS DOCUMENT IS A PERMANENT PART OF THE MEDICAL RECORD --------- PLEASE COMPLETE THE DOCUMENT BEFORE SIGNING Dear KAILYN Calixto Date 05/30/17 Registered Mail Clerk/CDS' Name Toni Moncada Registered Mail Clerk/CDS Phone#: [phone] Exercise your independent professional judgment when responding to query. Questions asked do not imply particular answer is desired or expected. We greatly appreciate your clarification on this issue. Clinical Documentation States: H & P (05/29/17) "Chest pain" Cardiology [facility] note: (05/29/17) = "Chest pain, reproducible on palpation in the deltopectoral groove. No evidence of myonecrosis." Clinical Findings Show: EKG = Normal sinus rhythm with sinus arrhythmia. Normal ECG Troponin = 0.000 O2% = 96-100 ECHO =mild LV diastolic dysfunction (Grade I ) EF = 65-70 %. Please document the suspected etiology of Chest Pain: a.Type: []Cardiac [X]Non-cardiac []Unspecified b.Etiology - cardiac [] Aortic dissection []Mitral valve prolapsed [] Acute myocardial infarction []Spasm of coronary arteries [] Coronary Artery Disease []Pericarditis c.Etiology - non-cardiac [] Anxiety []Pleurisy [] Cancer []Pneumonia, type [] Costochondritis []Pneumothorax [] GERD/Esophagitis []Pulmonary embolism [X] Unable to determine []Other: Condition Present on Admission: [X] Yes [] No []Clinically Undeterminable Please also document in your Progress Notes and/or Discharge Summary and indicate if the condition was present on admission. Dr. KAILYN CHANDLER Date/Time LIBORIO
--- NOTE | 2017-05-30 13:27 | General Progress Note ---
Assessment/Plan Assessment/Plan Anxiety disorder. PLAN: 1. We will start the patient on Ativan p.r.n. 2. The son-in-law stated that he would like morphine to be stopped. I redirected her to speak to the charge nurse Subjective Date patient seen: May 30, 2017 Neurologic/Psychiatric: Reports: anxiety, depressed, emotional problems Allergies: Coded Allergies: IBUPROFEN (Verified Allergy, Unknown, 05/28/17) Objective Last 24 Hour Vital Signs Date Time Temp Pulse Resp B/P (MAP) Pulse Ox O2 Delivery O2 Flow Rate FiO2 05/30/17 12:00 73 05/30/17 11:51 97.3 72 19 107/49 99 Room Air 97.3 05/30/17 10:21 Room Air 05/30/17 10:20 98 Room Air 05/30/17 10:19 72 18 Room Air 05/30/17 09:23 97/40 05/30/17 08:00 97.6 78 19 81/48 96 Nasal Cannula 2.0 97.6 05/30/17 08:00 79 05/30/17 04:00 61 05/30/17 04:00 97.1 68 20 99/51 100 Nasal Cannula 2.0 97.1 05/30/17 00:00 97.3 68 21 105/66 100 Nasal Cannula 2.0 97.3 05/30/17 00:00 58 05/29/17 21:15 69 175/96 05/29/17 21:14 69 175/96 05/29/17 20:33 69 05/29/17 20:00 97.0 80 20 174/72 99 Nasal Cannula 2.0 97.0 05/29/17 19:59 97 Nasal Cannula 2.0 28 05/29/17 19:59 87 20 Nasal Cannula 2.0 28 05/29/17 19:59 Nasal Cannula 2.0 28 05/29/17 19:54 175/96 05/29/17 16:00 97.3 76 19 149/73 97 Nasal Cannula 2.0 97.3 76 05/29/17 15:47 76 05/29/17 14:25 64 20 Nasal Cannula 2.0 05/29/17 14:23 Nasal Cannula 2.0 05/29/17 14:22 97 Nasal Cannula 2.0 Intake and Output 05/29/17 05/30/17 19:00 07:00 Intake Total 320 ml Balance 320 ml Intake Oral 320 ml # Voids 2 1 # Bowel Movements 2 Laboratory Tests 05/30/17 05:40: White Blood Count 10.7, Red Blood Count 3.52L, Hemoglobin 11.5L, Hematocrit 33.0L, Mean Corpuscular Volume 94, Mean Corpuscular Hemoglobin 32.8H, Mean Corpuscular Hemoglobin Concent 34.9, Red Cell Distribution Width 11.2L, Platelet Count 131L, Mean Platelet Volume 7.9, Neutrophils (%) (Auto) , Lymphocytes (%) (Auto) , Monocytes (%) (Auto) , Eosinophils (%) (Auto) , Basophils (%) (Auto) , Differential Total Cells Counted 100, Neutrophils % ( Manual) 31L, Lymphocytes % (Manual) 62H, Monocytes % (Manual) 5, Eosinophils % ( Manual) 2, Basophils % (Manual) 0, Band Neutrophils 0, Platelet Estimate DecreasedL, Platelet Morphology Normal, Anisocytosis 1+, Sodium Level 138, Potassium Level 4.1, Chloride Level 100, Carbon Dioxide Level 30, Anion Gap 8, Blood Urea Nitrogen 30H, Creatinine 1.3, Estimat Glomerular Filtration Rate , Glucose Level 96, Calcium Level 8.9, Troponin I 0.002 Height (Feet): 5 Height (Inches): 5.00 Weight (Pounds): 156 General Appearance: no apparent distress, alert Neurologic: oriented x 3, responsive Nicole Abreu M.D. May 30, 2017 13:27
--- NOTE | 2017-05-30 17:18 | Discharge Summary ---
Discharge Summary Hospital Course Date of Admission May 28, 2017 at 14:40 Date of Discharge May 30, 2017 at 14:40 Admitting Diagnosis ACUTE CORONARY SYNDROME HPI Jovita Cordero is a 86 year old female who was admitted on May 28, 2017 at 14: 40 for Acute Coronady Syndrome Hospital Course [id number] Discharge Discharge Disposition Patient was discharged to Home (01) Thu Busby NP May 30, 2017 17:18
--- NOTE | 2017-05-30 19:11 | Diagnostic Imaging Report ---
Indication: Pulmonary nodules Technique: CT of the chest utilizing automated exposure control with intravenous contrast. CT dose: Total DLP 562.31 mGycm; CTDI vol 17.31 mGy Comparison: Chest x-ray 05/28/2017 Findings: There are multiple subcentimeter nodules in the lungs bilaterally. These are most pronounced in the upper lobes (for example image #12). A larger, 5 mm nodule is noted in the middle lobe (image 29 congestion. There is linear opacity in the right lower lobe (image 40). There is questionable medication to a dilated bronchus (series 6 image #42). There is no pleural effusion or pneumothorax. Heart size is within normal limits. No pericardial effusion. There are coronary arterial calcifications. There is no evidence of thoracic aortic aneurysm or dissection. There is mild atherosclerotic calcification. There are multiple calcified mediastinal lymph nodes. Thyroid is grossly unremarkable. No pathologically enlarged lymphadenopathy. There is intrahepatic and extra hepatic biliary ductal dilatation with the common bile duct measuring up to 1.5 cm. The pancreas is only partially visualized and the downstream obstructing mass is not entirely excluded. There is dilatation of the pancreatic duct to 4.7 mm in the region of the pancreatic head. Dominant aorta normal in caliber and mildly calcified. There are degenerative changes in the spine. No acute osseous abnormality seen. IMPRESSION: Multiple nodular densities in the upper lobes some solid and some groundglass. The majority are subcentimeter. Findings are nonspecific and may be infectious or inflammatory in etiology. The possibility of malignancy not entirely excluded and term follow-up chest CT recommended within 3 months. Tubular density in the right lower lobe may represent scarring or atelectasis. Focus of mucus plugging also considered. Again, follow-up recommended. Intrahepatic and extrahepatic biliary ductal dilatation with the common bile duct measuring up to 1.5 cm. There is also some dilatation of the pancreatic duct. The pancreas is not entirely visualized and a obstructing mass in the pancreatic head/uncinate or at the ampulla cannot entirely be excluded. Further evaluation with dedicated imaging of the abdomen (CT of the abdomen with contrast or MRCP) recommended. Findings and follow-up imaging recommendations were discussed via telephone conversation with primary physician Dr. Sanchez at approximately 19:00 on 05/30/2017. The CT scanner at [facility] is accredited by the [employer] and the scans are performed using protocols designed to limit radiation exposure to as low as reasonably achievable to attain images of sufficient resolution adequate for diagnostic evaluation.
--- NOTE | 2017-05-31 00:45 | Discharge Summary 2 SIG ---
DATE OF ADMISSION: 05/28/2017 DATE OF DISCHARGE: 05/30/2017 CONSULTANTS: 1. Eunice Caro M.D. 2. Nicole Abreu M.D. 3. Ifeanyi Obrien M.D. BRIEF HOSPITAL COURSE: The patient is an 86-year-old white female, who presented with chief complaint of dizziness and chest pain. Symptoms started a month ago where she was admitted to [facility] and had a stress test done. Three days prior to admission, she began to experience dizziness and states dizziness gets worse with change of position. She also developed left-sided chest pain that radiates to the left axilla. There were no aggravating factors. She has medical history significant for hypertension and cerebrovascular accident in 1989. On evaluation at ED, initial troponin was negative. Chest x-ray showed no acute disease. EKG was in normal sinus rhythm. There were no acute ST-T-wave changes noted. She was then admitted for evaluation of chest pain and dizziness. She was followed by Dr. Obrien. EKG was unremarkable. Chest pain was reproducible on palpation of the deltopectoral groove. There was no evidence of myonecrosis. She was given Coreg and Norvasc. She was placed on anti-inflammatories to help with the pain. She had anxiety disorder and was placed on p.r.n. Ativan. She was recommended outpatient stress test and was eventually cleared for discharge home. Troponins were negative. Echocardiogram done showed ejection fraction of 65% to 70% with normal left ventricular size, function, and wall motion. RVSP of 36. FINAL DIAGNOSES: 1. Costochondritis. 2. Hypertension. 3. Anxiety. 4. Bilateral pulmonary nodules, unchanged. 5. Obesity. 6. Chronic lymphocytic leukemia. DISPOSITION: The patient was discharged home. DISCHARGE MEDICATIONS: Refer to medication list. DISCHARGE INSTRUCTIONS: Follow up with PCP in a week. Eunice Caro M.D. I have been assigned to dictate discharge summary on this account and I was not involved in the patient's management. Thu Busby N.P. DR: Anais JOB#: [id number] CC:
== END 2017-05-30 14:40 | disposition home or self-care (01) | DRG 206 ==
LOC: EDBD 13:13 → EMR 13:55 → 2E 14:40 → EDBEDREQ 15:59 → 2E 05-30 06:24
DX: M94.0 Chondrocostal junction syndrome [Tietze] (principal); C91.10 Chronic lymphocytic leukemia of B-cell type not having achieved remission; R07.89 Other chest pain; I10 Essential (primary) hypertension; E66.9 Obesity, unspecified; R42 Dizziness and giddiness; Z86.73 Personal history of transient ischemic attack (TIA), and cerebral infarction without residual deficits; Z88.6 Allergy status to analgesic agent; Z96.653 Presence of artificial knee joint, bilateral; F41.9 Anxiety disorder, unspecified; K21.9 Gastro-esophageal reflux disease without esophagitis; R91.8 Other nonspecific abnormal finding of lung field
CPT/HCPCS: 36415; 71045; 71260; 80048; 80053; 80061; 82550; 82553; 83690; 83880; 84443; 84484; 85007; 85025; 85610; 85730; 86140; 93005; 93306; 93880; 94664; 94760; 99285